=== PATIENT | male | born 1960 | race Caucasian/White ===

== ENCOUNTER 2024-02-19 14:45 | Outpatient (CLI) | payer OTHER, SELFPAY ==
--- NOTE | 2024-02-19 13:45 | DI.RAD_ITS ---
Exam(s) XR KNEE RT 4V AP,LAT,JEREMIE,PAT EXAM: XR KNEE RT 4V AP,LAT,JEREMIE,PAT CLINICAL HISTORY: RIGHT KNEE PAIN. TECHNIQUE: 2D digital imaging was performed. Four views. COMPARISON: No exams were available for comparison FINDINGS: BONES: No acute fracture is present. No bony destructive lesion is seen. Enthesophyte at upper pole o f the patella. JOINTS: Mild narrowing of the medial femoral tibial joint space and mild periarticular spurring. Mil d narrowing of the lateral patellofemoral joint. The knee is normally aligned. No joint effusion is seen. Chondrocalcinosis. SOFT TISSUE: Normal. IMPRESSION: Mild degenerative changes and chondrocalcinosis. DATA REPOSITORY: RADIATION DOSE DELIVERED:
== END 2024-02-19 14:46 | disposition home or self-care (01) ==
LOC: DIORS 14:45
PROVIDERS: PCP Family Medicine; Visit Provider Student in an Organized Health Care Education/Training Program
DX: M25.561 Pain in right knee (principal)
CPT/HCPCS: 73564

== ENCOUNTER → 2024-10-03 14:02 | Outpatient (BNVA) | payer MEDICARE, OTHER, SELFPAY | PROVIDERS: PCP Family Medicine; Referring Provider Family Medicine; Visit Provider Student in an Organized Health Care Education/Training Program | DX: M17.11 Unilateral primary osteoarthritis, right knee (principal) | CPT/HCPCS: 20610; J1010 ==